=== PATIENT | male | born 1945 | race Caucasian/White ===

== ENCOUNTER 2016-06-26 11:26 | Day surgery (SDC) | payer MEDICARE, OTHER ==
[~2016-06-26 11:26] MED LIST: ALBU17I INH; CARD120T4 PO; DRON400 PO; LEXA20TA PO; LISI-360 PO; PRAV20 PO; XARE20TA PO
[2016-06-26] MEDS ORDERED: PROPOFOL 200 MG/20 ML AMP IV ONE (12:12)
[2016-06-26] MEDS ORDERED: PRAV40TA2 PO (12:18)
[2016-06-26] MEDS ORDERED: ALBU1AER5 INH (12:18)
[2016-06-26] MEDS ORDERED: LOSA25TA PO (12:18)
[2016-06-26] MEDS ORDERED: DILT120T PO (12:18)
[2016-06-26] MEDS ORDERED: AMIO200T PO (12:18)
[2016-06-26] MEDS ORDERED: XARE20TA PO (12:18)
[2016-06-26] MEDS ORDERED: ESCI20TA PO (12:18)
[2016-06-26] MEDS ORDERED: ACET-166 PO (12:18)
--- NOTE | 2016-06-26 14:28 | PD.CARD ---
Cardiology Procedure Note Procedure Name: DC cardioversion Procedure Date: Jun 26, 2016 Procedure Note: Indication: Atrial fibrillation Procedure: 200 J biphasic shock resulted in SR. Dx: Successful DC cardioversion of atrial fibrillation Plan: Continue anticoagulation. F/u w me as outpatient. Doroteo Huynh MD Jun 26, 2016 14:28
--- NOTE | 2016-06-27 14:23 | EKG ---
Date Performed: 06/26/2016 Time Performed: 11:53:22 PTAGE: 70 years EKG: Atrial flutter has replaced Sinus rhythm when compared to prior tracing Diffuse ST T wave changes are noted, cannot rule out ischemia Clinica l correlation is recommended Abnormal ECG PREVIOUS TRACING : 02/15/2016 13.48 DOCTOR: Jun Rodgers Interpretating Date/Time 06/27/2016 14:23:10
--- NOTE | 2016-06-27 14:24 | EKG ---
Date Performed: 06/26/2016 Time Performed: 14:06:38 PTAGE: 70 years EKG: Sinus arrhythmia Compared to the previous tracing, Sinus rhythm replaces atrial fibrillation with normalization of EKG Normal ECG PREVIOUS TRACING : 06/26/2016 11.53 DOCTOR: Jun Rodgers Interpretating Date/Time 06/27/2016 14:23:32
== END 2016-06-26 15:00 | disposition home or self-care (01) ==
LOC: HDOC 11:26 → HDIC 11:26 → HDOC 15:00
PROVIDERS: ATTEND Internal Medicine Interventional Cardiology
DX: I48.0 Paroxysmal atrial fibrillation (principal); I10 Essential (primary) hypertension; I34.0 Nonrheumatic mitral (valve) insufficiency; I36.1 Nonrheumatic tricuspid (valve) insufficiency; E78.5 Hyperlipidemia, unspecified
CPT/HCPCS: 92960; 93005